=== PATIENT | female | born 2000 | race Caucasian/White ===

== ENCOUNTER 2022-04-03 11:48 | Emergency (ER) | payer BC ==
[~2022-04-03] VITALS: Ht 185.4 cm; Wt 63.5 kg
[2022-04-03 12:03] VITALS: BP_SYST 142
--- NOTE | 2022-04-03 13:48 | NUR ---
Pt brought by mother, A&Ox4, pt presents to ER with sore throat/gum pain and discomfort, pt sent by urgent care for a possible peridontal abscess, skin pink and warm, afebrile, will cont to monitor
--- NOTE | 2022-04-03 15:12 | NUR ---
Patient to ER bed 02 to gown for evaluation. Side rails up.
--- NOTE | 2022-04-03 15:14 | NUR ---
ASSUMED PATIENT CARE, AAOX4 SPEECH CLEAR AND COHERENT MOVE ALL EXTREMITIES C/O RIGHT FACIAL PAIN , SEEN AT THE URGENT CARE AND SENT TO ER FOR FURTHER EVALUATION. MOTHER AT BEDSIDE, AWAITING FOR EDP FOR INITIAL ASSESSMENT.
--- NOTE | 2022-04-03 15:55 | NUR ---
EDP AT BEDSIDE FOR INITIAL ASSESSMENT.
[2022-04-03] MEDS ORDERED: DEXAMETHASONE SOD PHOSPHATE 10 MG/ML VIAL IM ONE (16:00)
[2022-04-03] MEDS ORDERED: IBUPROFEN 800 MG TABLET PO ONE (16:00)
[2022-04-03] MEDS ORDERED: IBUP-1969 PO (18:12)
[2022-04-03 18:22] VITALS: BP_SYST 142
--- NOTE | 2022-04-03 18:23 | NUR ---
Patient given written and verbal discharge instructions and verbalizes understanding. ER MD discussed with patient the results and treatment provided. Patient in stable condition. ID arm band removed. Rx of Ibuprofen given. Patient educated on pain management and to follow up with PMD. Pain Scale 2/10 . Opportunity for questions provided and answered. Medication side effect fact sheet provided.
== END 2022-04-03 18:22 | disposition home or self-care (01) ==
LOC: SED 11:48
DX: B27.90 Infectious mononucleosis, unspecified without complication (principal); J02.9 Acute pharyngitis, unspecified; Z79.899 Other long term (current) drug therapy
CPT/HCPCS: 99283; 96374; 86308; 86403; 36415; 81025; 87081; J1100